=== PATIENT | male | born 1970 | race Caucasian/White ===

== ENCOUNTER → 2018-05-25 | Outpatient (CLI) | payer OTHER ==
--- NOTE | 2018-05-25 12:24 | PCVCIMAG ---
APPROVED REPORT Study performed: 05/25/2018 11:24:47 Exam: Stress Echocardiogram Indication: CAD s/p ND, chest pain, dyspnea, tobacco use Patient Location: Echo lab Stress Nurse: Georgette Leon RN Status: routine Ht: 6 ft 1 in HR: 93 bpm BP: 140/82 mmHg Rhythm: NSR Procedure The patient underwent an Exercise Stress Test using the Edi Protocol. Blood pressure, heart rate, and EKG were monitored. An Echocardiogram was performed by paint prep technician in four stages in quad fashion. At peak stress, four selected images were obtained and placed side by side with resting images for comparison. Stress Test Details Stress Test: Exercise stress testing was performed using a Edi protocol. HR Resting HR: 93 bpmMax Heart Rate (APMHR): 174 bpm Max HR Achieved: 166 bpmTarget HR (85% APMHR): 147 bpm % of APMHR: 95 Recovery HR: 99 bpm HR response to stress: Normal HR response to stress BP Resting BP: 140/82 mmHg Max BP: 210/80 mmHg Recovery BP: 148/74 mmHg BP response to stress: Normal blood pressure response to stress. ECG Resting ECG: Sinus Rhythm Stress ECG: Sinus Rhythm ST Change: Normal Arrhythmia: occasional PACs Recovery ECG: Sinus Rhythm Recovery ST Change: Normal Recovery Arrhythmia: None Clinical Reason for Termination: Chest pain/Anginal equivalent, Dyspnea Stress Symptoms: Dyspnea, Chest pain/tightness Exercise duration: 5 min 24 sec Highest Stage Achieved: Stage 2: 2.5 mph at 12% grade. Exercise capacity: 7.2 METs Overall Exercise Capacity for Age: Poor Angina Score: Exercise-Limiting Pre-Stress Echo The resting Echocardiogram showed normal left ventricular contractility with an estimated Ejection Fraction of about >55%. Normal wall motion in all segments on baseline images. Post-Stress Echo The stress Echocardiogram showed normal left ventricular contractility with an estimated Ejection Fraction of about 55-60%. The stress Echocardiogram demonstrated wall motion abnormality in the mid-inferior wall- hypokinesis. Clinical ECG evidence for ischemia. Conclusion Clinical Response: Ischemic- chest pain with exertion that resolved in recovery Exercise Capacity: Below Average Stress ECG Response: non-specific ECG Stress Echo Images: Ischemic The left ventricle is normal in size and wall thickness in both the rest and stress images. Mid-Inferior wall hypokinetic post exercise. Other Information Study Quality: Adequate <Conclusion> The left ventricle is normal in size and wall thickness in both the rest and stress images. Mid-Inferior wall hypokinetic post exercise.
== END | disposition home or self-care (01) ==
LOC: PCVCIMAG 12:16
PROVIDERS: ATTEND Internal Medicine Cardiovascular Disease
DX: I25.10 Atherosclerotic heart disease of native coronary artery without angina pectoris (principal); I25.2 Old myocardial infarction; R07.9 Chest pain, unspecified; R06.02 Shortness of breath; Z72.0 Tobacco use
CPT/HCPCS: 93325; 93351